=== PATIENT | female | born 1975 | race American Indian/Alaskan Native ===

== ENCOUNTER 2016-08-17 09:56 | Emergency (ER) | payer MEDICARE ==
[2016-08-17 10:03] VITALS: BP 117/81
--- NOTE | 2016-08-17 12:51 | Emergency Department Report ---
ED ENT HPI - General Chief complaint: Dental/Oral Stated complaint: TONGUE PAIN Time Seen by Provider: 08/17/16 11:48 Source: patient Mode of arrival: Ambulatory Limitations: No Limitations - History of Present Illness Initial comments: This is a 41-year-old female well-nourished with nontoxic or ill in appearance that presents with burning sensation of the left tongue for the past year. Patient is concerned because it is getting worse. Patient stated he has been following up with her primary care doctor and ENT Dr. Pineda. Patient also stated that Dr. Pineda does not think its cancerous and prescribed her mouth wash to use on a daily basis. Patient stated she wants pain medication to relieve her symptoms today. Patient denies any trauma to the area, burning, numbness, tingling, unable to taste food. Patient associated symptoms include burning sensation to the left lateral tongue base. Patient stated this comes and goes and is relieved by pain medication. Patient denies any drug allergies. MD complaint: other (burning sentation to the tongue) -: Gradual, year(s) (1) Location: other (left lateral tongue) Severity: mild Severity scale (0 -10): 10 Quality: burning Consistency: constant Improves with: NSAID, other medication ([place]) Worsens with: none Associated Symptoms: denies: fever, cough, gum swelling, toothache, pain with swallowing, sore throat, tinnitus, hearing loss, discharge from ear, rhinorrhea - Related Data Home Medications Medication Instructions Recorded Confirmed Last Taken ARIPiprazole [Abilify TAB] 15 mg PO DAILY 12/04/14 03/25/15 03/24/15 Trazodone HCl [traZODone] 150 mg PO QHS 12/04/14 03/25/15 03/24/15 ARIPiprazole [Abilify] 15 mg PO QHS 03/25/15 03/25/15 03/24/15 LORazepam [Ativan] 2 mg PO Q8HR PRN 03/25/15 03/25/15 03/24/15 [place] Carbonate [[place] 450 mg PO DAILY 03/25/15 03/25/15 03/24/15 Carbonate ER] Loxapine (Nf) [Loxitane Cap (Nf)] 50 mg PO QHS 03/25/15 03/25/15 03/24/15 Olanzapine [OLANZapine] 15 mg PO QHS 03/25/15 03/25/15 03/24/15 Prazosin [Minipress] 2 mg PO QHS 03/25/15 03/25/15 03/24/15 Previous Rx's Medication Instructions Recorded Last Taken Type Benzocaine/Menthol [Cepacol Sore 1 each MM Q4H PRN #18 lozenge 04/26/16 Unknown Rx Throat Lozenge] Ibuprofen [Motrin] 600 mg PO Q8H PRN #25 tablet 04/26/16 Unknown Rx Ibuprofen [Motrin 600 MG tab] 600 mg PO Q8H PRN 5 Days 08/17/16 Unknown Rx Allergies Allergy/AdvReac Type Severity Reaction Status Date / Time No Known Allergies Allergy Verified 12/23/14 15:20 ED Dental HPI - General Chief complaint: Dental/Oral Stated complaint: TONGUE PAIN Time Seen by Provider: 08/17/16 11:48 Source: patient Mode of arrival: Ambulatory Limitations: No Limitations - Related Data Home Medications Medication Instructions Recorded Confirmed Last Taken ARIPiprazole [Abilify TAB] 15 mg PO DAILY 12/04/14 03/25/15 03/24/15 Trazodone HCl [traZODone] 150 mg PO QHS 12/04/14 03/25/15 03/24/15 ARIPiprazole [Abilify] 15 mg PO QHS 03/25/15 03/25/15 03/24/15 LORazepam [Ativan] 2 mg PO Q8HR PRN 03/25/15 03/25/15 03/24/15 [place] Carbonate [[place] 450 mg PO DAILY 03/25/15 03/25/15 03/24/15 Carbonate ER] Loxapine (Nf) [Loxitane Cap (Nf)] 50 mg PO QHS 03/25/15 03/25/15 03/24/15 Olanzapine [OLANZapine] 15 mg PO QHS 03/25/15 03/25/15 03/24/15 Prazosin [Minipress] 2 mg PO QHS 03/25/15 03/25/15 03/24/15 Previous Rx's Medication Instructions Recorded Last Taken Type Benzocaine/Menthol [Cepacol Sore 1 each MM Q4H PRN #18 lozenge 04/26/16 Unknown Rx Throat Lozenge] Ibuprofen [Motrin] 600 mg PO Q8H PRN #25 tablet 04/26/16 Unknown Rx Ibuprofen [Motrin 600 MG tab] 600 mg PO Q8H PRN 5 Days 08/17/16 Unknown Rx Allergies Allergy/AdvReac Type Severity Reaction Status Date / Time No Known Allergies Allergy Verified 12/23/14 15:20 ED Review of Systems ROS: Stated complaint: TONGUE PAIN Other details as noted in HPI Constitutional: denies: chills, fever Eyes: denies: eye pain, eye discharge, vision change ENT: denies: ear pain, throat pain Respiratory: denies: cough, shortness of breath, wheezing Cardiovascular: denies: chest pain, palpitations Endocrine: no symptoms reported Gastrointestinal: denies: abdominal pain, nausea, diarrhea Genitourinary: denies: urgency, dysuria, discharge Musculoskeletal: denies: back pain, joint swelling, arthralgia Skin: denies: rash, lesions Neurological: denies: headache, weakness, paresthesias Psychiatric: denies: anxiety, depression Hematological/Lymphatic: denies: easy bleeding, easy bruising ED Past Medical Hx - Past Medical History Previous Medical History?: Yes Hx Deep Vein Thrombosis: Yes (2008 POST DELIVERY) Hx Pulmonary Embolism: Yes (2008 POST DELIVERY HAS IVC FILTER) Hx Seizures: Yes (LAST SEIZURE WAS 2008 PSYCH MED RELATED) Hx Kidney Stones: Yes Hx Psychiatric Treatment: Yes (Manic Depression) - Surgical History Past Surgical History?: Yes Hx Cholecystectomy: Yes Hx Breast Surgery: Yes (BREAST REDUCTION) Additional Surgical History: breast reduction-2002 - Social History Smoking Status: Never Smoker Substance Use Type: Prescribed - Medications Home Medications: Home Medications Medication Instructions Recorded Confirmed Last Taken Type ARIPiprazole [Abilify TAB] 15 mg PO DAILY 12/04/14 03/25/15 03/24/15 History Trazodone HCl [traZODone] 150 mg PO QHS 12/04/14 03/25/15 03/24/15 History ARIPiprazole [Abilify] 15 mg PO QHS 03/25/15 03/25/15 03/24/15 History LORazepam [Ativan] 2 mg PO Q8HR PRN 03/25/15 03/25/15 03/24/15 History [place] Carbonate [[place] 450 mg PO DAILY 03/25/15 03/25/15 03/24/15 History Carbonate ER] Loxapine (Nf) [Loxitane Cap (Nf)] 50 mg PO QHS 03/25/15 03/25/15 03/24/15 History Olanzapine [OLANZapine] 15 mg PO QHS 03/25/15 03/25/15 03/24/15 History Prazosin [Minipress] 2 mg PO QHS 03/25/15 03/25/15 03/24/15 History Benzocaine/Menthol [Cepacol Sore 1 each MM Q4H PRN #18 lozenge 04/26/16 Unknown Rx Throat Lozenge] Ibuprofen [Motrin] 600 mg PO Q8H PRN #25 tablet 04/26/16 Unknown Rx Ibuprofen [Motrin 600 MG tab] 600 mg PO Q8H PRN 5 Days 08/17/16 Unknown Rx ED Physical Exam - General Limitations: No Limitations General appearance: alert, in no apparent distress - Head Head exam: Present: atraumatic, normocephalic - Eye Eye exam: Present: normal appearance, PERRL, EOMI - ENT ENT exam: Present: normal exam, normal orophraynx, mucous membranes moist, TM's normal bilaterally, normal external ear exam, other - Expanded ENT Exam Expanded Mouth exam: Present: normal external inspection, tongue normal, other (tongue no pus, no drainge, nontender). Absent: drooling, trismus, muffled voice, laceration - Neck Neck exam: Present: normal inspection - Respiratory Respiratory exam: Present: normal lung sounds bilaterally. Absent: respiratory distress - Cardiovascular Cardiovascular Exam: Present: regular rate, normal rhythm. Absent: systolic murmur, diastolic murmur, rubs, gallop - GI/Abdominal GI/Abdominal exam: Present: soft, normal bowel sounds - Extremities Exam Extremities exam: Present: normal inspection - Back Exam Back exam: Present: normal inspection - Neurological Exam Neurological exam: Present: alert, oriented X3 - Psychiatric Psychiatric exam: Present: normal affect, normal mood - Skin Skin exam: Present: warm, dry, intact, normal color. Absent: rash ED Course Vital Signs 08/17/16 08/17/16 09:58 13:00 Temperature 98 F Pulse Rate 98 H 86 Respiratory 20 Rate Blood Pressure 117/81 O2 Sat by Pulse 97 Oximetry ED Medical Decision Making - Medical Decision Making Ed course: This is a 41-year-old female that complains of tongue burning for the past year. 1- after my physical exam, I instructed the patient to get a second opinion from another ear nose and throat doctor for possibility of a biopsy if she is concerned. 2- patient received ibuprofen 600 mg by mouth for burning sensation. Patient requested for pain medication. 3- at time time of discharge, the patient does not seem toxic or ill in appearance. No acute signs of distress noted. Patient agrees to discharge treatment plan of care. No further questions noted by the patient. Critical care attestation.: If time is entered above; I have spent that time in minutes in the direct care of this critically ill patient, excluding procedure time. ED Disposition Clinical Impression: Tongue burning sensation Disposition: DISCHARGED TO HOME OR SELFCARE Is pt being admited?: No Does the pt Need Aspirin: No Condition: Stable Instructions: Ibuprofen (By mouth) Additional Instructions: Follow up with her primary care doctor/ENT in 3-5 days or if symptoms worsen report back to emergency room. You can follow up with another ear nose and throat doctor as referred for a second opinion as requested for possibility of a biopsy. Take ibuprofen as prescribed as needed. Prescriptions: Ibuprofen [Motrin 600 MG tab] 600 mg PO Q8H PRN 5 Days PRN Reason: Pain Referrals: PRIMARY CARE, [Primary Care Provider] - 3-5 Days [facility] [Provider Group] - 3-5 Days [facility] [Outside] - 3-5 Days [facility] [Outside] - 3-5 Days Forms: Work/School Release Form(ED)
[2016-08-17] MEDS ORDERED: MOTRIN PO ONE (12:53)
== END 2016-08-17 13:16 | disposition home or self-care (01) ==
LOC: ED 09:56
DX: K14.6 Glossodynia (principal); I82.409 Acute embolism and thrombosis of unspecified deep veins of unspecified lower extremity; I26.99 Other pulmonary embolism without acute cor pulmonale; R56.9 Unspecified convulsions; F32.9 Major depressive disorder, single episode, unspecified
CPT/HCPCS: 99282

== ENCOUNTER 2016-10-09 11:54 | Outpatient (CLI) | payer MEDICARE | END 2016-10-09 11:55 | disposition home or self-care (01) | LOC: LABHHL 11:54 | PROVIDERS: ATTEND Otolaryngology | DX: K14.0 Glossitis (principal); D64.9 Anemia, unspecified; F32.9 Major depressive disorder, single episode, unspecified; Z87.891 Personal history of nicotine dependence | CPT/HCPCS: 88305; 88312 ==

== ENCOUNTER 2016-11-16 17:59 | Outpatient (CLI) | payer MEDICARE ==
--- NOTE | 2016-11-17 07:58 | XRay Report ---
KUB: History: IVC filter from pulmonary embolism. Findings: IVC filter tip is at the level of lower body of the L2 vertebral body at the L2-L3 interspace. No bowel distention. Impression: Stable IVC filter.
== END 2016-11-16 18:00 | disposition home or self-care (01) ==
LOC: XRAY 17:59
PROVIDERS: ATTEND Surgery Vascular Surgery
DX: Z86.711 Personal history of pulmonary embolism (principal); D64.9 Anemia, unspecified; F32.9 Major depressive disorder, single episode, unspecified
CPT/HCPCS: 74000

== ENCOUNTER 2017-03-25 20:21 | Emergency (ER) | payer MEDICARE ==
--- NOTE | 2017-03-26 05:42 | XRay Report ---
FINAL REPORT EXAM: XR CHEST ROUTINE 2V HISTORY: Cough for 2 wks. Fever and chills on and off. No shortness of breath. TECHNIQUE: Frontal and lateral radiographs of the chest were obtained. No prior studies are available for comparison. FINDINGS: The cardiac silhouette and mediastinum are within normal limits. The lungs are clear bilaterally, without focal infiltrate or effusion. There is no pneumothorax. There is a mild thoracic dextroscoliosis, which may be partially positional. A 3-4 mm metallic density overlies the soft tissues of the left lower neck on the frontal projection, presumably external artifact. IMPRESSION: No focal infiltrate or effusion.
--- NOTE | 2017-03-26 07:49 | Emergency Department Report ---
Minor Respiratory - HPI Chief Complaint: Upper Respiratory Infection Stated Complaint: COUGH Time Seen by Provider: 03/26/17 07:19 Duration: 5 Days Pain Location: Other (COUGH) Severity: mild Minor Respiratory: Yes Able to Tolerate Fluids, Yes Cough, No Rhinorrhea, No Sore Throat, No Ear Pain, No Sick Contacts, No Hemoptysis, No Chest Pain, No Shortness of Breath, No Fever ED Review of Systems ROS: Stated complaint: COUGH Other details as noted in HPI Comment: All other systems reviewed and negative Constitutional: denies: fever Respiratory: cough ED Past Medical Hx - Past Medical History Hx Deep Vein Thrombosis: Yes (2008 POST DELIVERY) Hx Pulmonary Embolism: Yes (2008 POST DELIVERY HAS IVC FILTER) Hx Seizures: Yes (LAST SEIZURE WAS 2008 PSYCH MED RELATED) Hx Kidney Stones: Yes Hx Psychiatric Treatment: Yes (Manic Depression) - Surgical History Hx Cholecystectomy: Yes Hx Breast Surgery: Yes (BREAST REDUCTION) Additional Surgical History: breast reduction-2002 - Social History Smoking Status: Never Smoker Substance Use Type: None - Medications Home Medications: Home Medications Medication Instructions Recorded Confirmed Last Taken Type ARIPiprazole [Abilify TAB] 15 mg PO DAILY 12/04/14 03/25/15 03/24/15 History Trazodone HCl [traZODone] 150 mg PO QHS 12/04/14 03/25/15 03/24/15 History ARIPiprazole [Abilify] 15 mg PO QHS 03/25/15 03/25/15 03/24/15 History LORazepam [Ativan] 2 mg PO Q8HR PRN 03/25/15 03/25/15 03/24/15 History [place] Carbonate [[place] 450 mg PO DAILY 03/25/15 03/25/15 03/24/15 History Carbonate ER] Loxapine (Nf) [Loxitane Cap (Nf)] 50 mg PO QHS 03/25/15 03/25/15 03/24/15 History Olanzapine [OLANZapine] 15 mg PO QHS 03/25/15 03/25/15 03/24/15 History Ibuprofen [Motrin] 600 mg PO Q8H PRN #25 tablet 04/26/16 Unknown Rx Azithromycin [Zithromax] 250 mg PO DAILY #6 tablet 03/26/17 Unknown Rx Benzonatate [Tessalon Perles] 100 mg PO Q8HR PRN #20 capsule 03/26/17 Unknown Rx Minor Respiratory Exam - Exam General: Vital signs noted. No distress. Alert and acting appropriately. HEENT: Yes Moist Mucous Membranes, No Pharyngeal Erythema, No Pharyngeal Exudates, No Rhinorrhea, No Conjuctival Injection, No Frontal Tenderness, No Maxillary Tenderness Ear: Neither TM Bulge, Neither TM Erythema, Neither EAC Pain, Neither EAC Discharge Neck: Yes Supple, No Adenopathy Lungs: Yes Good Air Exchange, Yes Cough (no purulent sputum), No Wheezes, No Ronchi, No Stridor, No Labored Respirations, No Retractions, No Use of Accessory Muscles, No Other Abnormal Lung Sounds Heart: Yes Regular, No Murmur Abdomen: Yes Normal Bowel Sounds, No Tenderness, No Peritoneal Signs Skin: No Rash, No Edema Neurologic: Alert and oriented, no deficits. Musculoskeletal: Unremarkable. ED Course Vital Signs 03/25/17 03/26/17 21:36 03:29 Temperature 98.4 F 98.2 F Pulse Rate 85 96 H Respiratory 18 14 Rate Blood Pressure 117/84 125/78 O2 Sat by Pulse 100 99 Oximetry ED Medical Decision Making - Radiology Data Radiology results: report reviewed, image reviewed - Medical Decision Making chest xray clear flu neg see note - Differential Diagnosis ro urti Critical care attestation.: If time is entered above; I have spent that time in minutes in the direct care of this critically ill patient, excluding procedure time. ED Disposition Clinical Impression: Cough, URTI (acute upper respiratory infection) Disposition: DC-01 TO HOME OR SELFCARE Is pt being admited?: No Does the pt Need Aspirin: No Condition: Stable Instructions: Upper Respiratory Infection (ED), Cold Symptoms (ED) Additional Instructions: REST FLUIDS MEDS ORDERED FOLLOW UP PCP ONLY TAKE ANTIBIOTIC IF FEVER AND OR PURULENT SPUTUM WE DISCUSSED MOTRIN OR TYLENOL FOR PAIN OR FEVER Referrals: EVAN ROY MD [Primary Care Provider] - 3-5 Days IVONE LUCAS MD [Staff Physician] - 3-5 Days Time of Disposition: 07:45
[2017-03-26 08:20] VITALS: BP 106/69
== END 2017-03-26 08:19 | disposition home or self-care (01) ==
LOC: ED 20:21
DX: J06.9 Acute upper respiratory infection, unspecified (principal); Z86.718 Personal history of other venous thrombosis and embolism
CPT/HCPCS: 71020; 87400; 99283

== ENCOUNTER 2017-11-07 14:31 | Emergency (ER) | payer MEDICARE ==
[2017-11-07 14:37] VITALS: BP 169/110
--- NOTE | 2017-11-07 15:45 | XRay Report ---
FINAL REPORT PROCEDURE: Three view left shoulder series TECHNIQUE: Left shoulder radiographs including AP views in internal and external rotation and abduction. CPT 66630 HISTORY: Pain, deformity COMPARISON: No prior studies are available for comparison. FINDINGS: No fracture or dislocation visualized. Small marginal osteophytic spur projects from the inferior articular margin of the humeral head. Joint spaces otherwise are well preserved. No abnormal soft tissue calcifications are seen. IMPRESSION: Mild osteoarthritic changes glenohumeral joint space. No acute abnormality is seen
--- NOTE | 2017-11-07 16:04 | Emergency Department Report ---
ED Upper Extremity Inj HPI - General Chief Complaint: Shoulder Injury Stated Complaint: SHOULER LEFT PAIN Time Seen by Provider: 11/07/17 15:08 Source: patient Mode of arrival: Ambulatory Limitations: No Limitations - History of Present Illness Initial Comments: Patient is 42 years old female with history of frequent left shoulder dislocation. Patient stated that she is being followed by an orthopedics in requested to do an MRI but she did not do it so far. Patient's think that she had another left shoulder dislocation. Patient stated that she raised her arm up and then she felt that her shoulder pop out. Patient denied any other injuries. MD Complaint: Injury to:: left, shoulder -: Sudden Other Extremity Injury: Shoulder: Left Other Injuries: none Handedness: left Place: home Improves With: immobilization Worsens With: movement of extremity Associated Symptoms: denies other symptoms - Related Data Home Medications Medication Instructions Recorded Confirmed Last Taken ARIPiprazole [Abilify TAB] 15 mg PO DAILY 12/04/14 03/25/15 03/24/15 Trazodone HCl [traZODone] 150 mg PO QHS 12/04/14 03/25/15 03/24/15 ARIPiprazole [Abilify] 15 mg PO QHS 03/25/15 03/25/15 03/24/15 LORazepam [Ativan] 2 mg PO Q8HR PRN 03/25/15 03/25/15 03/24/15 [place] Carbonate [[place] 450 mg PO DAILY 03/25/15 03/25/15 03/24/15 Carbonate ER] Loxapine (Nf) [Loxitane Cap (Nf)] 50 mg PO QHS 03/25/15 03/25/15 03/24/15 Olanzapine [OLANZapine] 15 mg PO QHS 03/25/15 03/25/15 03/24/15 Previous Rx's Medication Instructions Recorded Last Taken Type Ibuprofen [Motrin] 600 mg PO Q8H PRN #25 tablet 04/26/16 Unknown Rx Azithromycin [Zithromax] 250 mg PO DAILY #6 tablet 03/26/17 Unknown Rx Benzonatate [Tessalon Perles] 100 mg PO Q8HR PRN #20 capsule 03/26/17 Unknown Rx Allergies Allergy/AdvReac Type Severity Reaction Status Date / Time No Known Allergies Allergy Verified 12/23/14 15:20 ED Review of Systems ROS: Stated complaint: SHOULER LEFT PAIN Other details as noted in HPI ED Past Medical Hx - Past Medical History Previous Medical History?: Yes Hx Deep Vein Thrombosis: Yes (2008 POST DELIVERY) Hx Pulmonary Embolism: Yes (2008 POST DELIVERY HAS IVC FILTER) Hx Seizures: Yes (LAST SEIZURE WAS 2008 PSYCH MED RELATED) Hx Kidney Stones: Yes Hx Psychiatric Treatment: Yes (Manic Depression) - Surgical History Hx Cholecystectomy: Yes Hx Breast Surgery: Yes (BREAST REDUCTION) Additional Surgical History: breast reduction-2002 - Social History Smoking Status: Never Smoker Substance Use Type: None - Medications Home Medications: Home Medications Medication Instructions Recorded Confirmed Last Taken Type ARIPiprazole [Abilify TAB] 15 mg PO DAILY 12/04/14 03/25/15 03/24/15 History Trazodone HCl [traZODone] 150 mg PO QHS 12/04/14 03/25/15 03/24/15 History ARIPiprazole [Abilify] 15 mg PO QHS 03/25/15 03/25/15 03/24/15 History LORazepam [Ativan] 2 mg PO Q8HR PRN 03/25/15 03/25/15 03/24/15 History [place] Carbonate [[place] 450 mg PO DAILY 03/25/15 03/25/15 03/24/15 History Carbonate ER] Loxapine (Nf) [Loxitane Cap (Nf)] 50 mg PO QHS 03/25/15 03/25/15 03/24/15 History Olanzapine [OLANZapine] 15 mg PO QHS 03/25/15 03/25/15 03/24/15 History Ibuprofen [Motrin] 600 mg PO Q8H PRN #25 tablet 04/26/16 Unknown Rx Azithromycin [Zithromax] 250 mg PO DAILY #6 tablet 03/26/17 Unknown Rx Benzonatate [Tessalon Perles] 100 mg PO Q8HR PRN #20 capsule 03/26/17 Unknown Rx ED Physical Exam - General Limitations: No Limitations ED Course Vital Signs 11/07/17 14:34 Temperature 98.6 F Pulse Rate 98 H Respiratory 16 Rate Blood Pressure 169/110 ED Medical Decision Making - Radiology Data Radiology results: report reviewed Left shoulder x-ray no evidence of dislocation or fracture. Critical care attestation.: If time is entered above; I have spent that time in minutes in the direct care of this critically ill patient, excluding procedure time. ED Disposition Clinical Impression: Left shoulder pain Disposition: DC-01 TO HOME OR SELFCARE Is pt being admited?: No Condition: Stable Instructions: Shoulder Sprain (ED) Referrals: PRIMARY CARE, [Primary Care Provider] - 3-5 Days
== END 2017-11-07 16:13 | disposition home or self-care (01) ==
LOC: ED 14:31
DX: M25.512 Pain in left shoulder (principal); Z86.718 Personal history of other venous thrombosis and embolism; Z86.711 Personal history of pulmonary embolism; F32.9 Major depressive disorder, single episode, unspecified; Z87.442 Personal history of urinary calculi; Z79.899 Other long term (current) drug therapy

== ENCOUNTER 2017-11-25 23:01 | Emergency (ER) | payer MEDICARE ==
--- NOTE | 2017-11-26 00:54 | XRay Report ---
FINAL REPORT EXAM: XR KNEE 1-2V RT HISTORY: trauma, pain TECHNIQUE: AP and lateral views of the right knee were submitted. FINDINGS: All 3 compartments appear normal. There is no evidence of fracture or joint effusion. The soft tissues are well maintained. IMPRESSION: Within normal limits.
--- NOTE | 2017-11-26 00:55 | XRay Report ---
FINAL REPORT EXAM: XR FEMUR 2+V RT HISTORY: trauma, lacerations from glass TECHNIQUE: Four views of the right femur were submitted. FINDINGS: There is no evidence of fracture or dislocation. There is no evidence of radiopaque foreign bodies in the soft tissues. IMPRESSION: Within normal limits.
--- NOTE | 2017-11-26 00:56 | XRay Report ---
FINAL REPORT EXAM: XR TIBIA FIBULA 2V RT HISTORY: trauma, lacerations from glass TECHNIQUE: Four views of the right tibia-fibula were submitted. FINDINGS: There is no evidence of fracture or soft tissue injury. There is no evidence of radiopaque foreign body in the soft tissues. IMPRESSION: Within normal limits.
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
[2017-11-26] MEDS ORDERED: ULTRAM PO ONE (03:27)
[2017-11-26] MEDS ORDERED: BOOSTRIX IM ONE ×2 (03:27→03:31)
[2017-11-26] MEDS ORDERED: ULTRAM ONE (03:31)
[2017-11-26] MEDS ORDERED: XYLOCAINE 2% INFILTRATI ONE (03:34)
[2017-11-26 03:55] VITALS: BP 144/94
== END 2017-11-26 03:55 | disposition home or self-care (01) ==
LOC: ED 23:01
DX: S71.111A Laceration without foreign body, right thigh, initial encounter (principal); S81.812A Laceration without foreign body, left lower leg, initial encounter; I26.99 Other pulmonary embolism without acute cor pulmonale; F33.9 Major depressive disorder, recurrent, unspecified; Z86.718 Personal history of other venous thrombosis and embolism; Z90.49 Acquired absence of other specified parts of digestive tract; Y08.89XA Assault by other specified means, initial encounter; Y93.89 Activity, other specified; Y92.89 Other specified places as the place of occurrence of the external cause; Y99.8 Other external cause status
CPT/HCPCS: 90471; 90715